=== PATIENT | male | born 1950 | race Two or more races ===

== ENCOUNTER 2023-01-26 10:40 | Inpatient (IN) | payer OTHER ==
[2023-01-26 11:05] VITALS: BMI 26.6
[2023-01-26 12:43] LABS: HEMATOCRIT 45.2 % (35.4-49); HEMOGLOBIN 15.6 GM/dL (11.7-16.9); MCH 31.3 pg (25.7-33.7); MCHC 34.6 g/dl (32.0-35.9); MEAN CELL VOLUME 90.7 fl (80-96); MEAN PLT VOLUME 7.5 fl (7.5-11.1); PLATELET COUNT 228 10^3/uL (134-434); RBC 4.98 M/mm3 (4.00-5.60); RDW 15.4 % (11.9-15.9); WHITE BLOOD COUNT 5.1 K/mm3 (4.0-10.0)
[2023-01-26 12:51] LABS: INR 2.72 (0.83-1.09); PROTHROMBIN TIME (PATIENT) 31.2 SEC (9.7-13.0)
[2023-01-26 13:24] LABS: POTASSIUM 4.1 mmol/L (3.5-5.1)
[2023-01-26 13:28] LABS: CALCIUM 8.7 mg/dL (8.5-10.1)
[2023-01-26 13:29] LABS: ALBUMIN 3.7 g/dl (3.4-5.0); BLOOD UREA NITROGEN 18.2 mg/dL (7-18)
[2023-01-26 13:32] LABS: CREATININE 1.1 mg/dL (0.55-1.3)
[2023-01-26 13:33] LABS: BILIRUBIN,TOTAL 0.5 mg/dL (0.2-1); TOT PROT 6.9 g/dl (6.4-8.2)
[2023-01-26] MEDS ORDERED: HEPARIN NA (PORCINE) 5,000 UNITS/ML 1ML VIAL IVPUSH PRN ×2 (16:56)
[2023-01-26] MEDS: CLOPIDOGREL BISULFATE 75 MG TABLET (FP) PO SCH (17:24)
[2023-01-26] MEDS: ISOSORBIDE MONONITRATE 30 MG TAB.SR.24H (FP) PO SCH (17:24)
[2023-01-26] MEDS: EZETIMIBE 10 MG TABLET (FP) PO SCH (17:51)
[2023-01-26] MEDS ORDERED: HEPARIN INFUSION - 25,000 UNITS/500 ML INFUS.BAG IVPB ONE (17:59)
[2023-01-26] MEDS: HEPARIN INFUSION - 25,000 UNITS/500 ML INFUS.BAG IVPB SCH (18:12)
[2023-01-26] MEDS ORDERED: ACETAMINOPHEN INJECTION 100 ML IVPB ONE (21:05)
[2023-01-26] MEDS: ACETAMINOPHEN 1000 MG/100 ML BAG IVPB PRN (21:14)
[2023-01-26] MEDS ORDERED: CARVEDILOL 12.5 MG TABLET (FP) ONE (22:53)
[2023-01-26] MEDS ORDERED: ATORVASTATIN CA 80 MG TABLET (FP) ONE (22:54)
[2023-01-27] MEDS ORDERED: morphine SULFATE 4 MG/ML VIAL ONE
[2023-01-27] MEDS: DRONEDARONE HCL 400 MG TAB (FP) PO SCH ×3 (00:08→17:44)
[2023-01-27] MEDS: CARVEDILOL 12.5 MG TABLET (FP) PO SCH ×3 (00:08→22:20)
[2023-01-27] MEDS: ATORVASTATIN CA 80 MG TABLET (FP) PO SCH ×2 (00:08→22:19)
[2023-01-27] MEDS: ACETAMINOPHEN 1000 MG/100 ML BAG IVPB PRN (03:18)
[2023-01-27 09:55] LABS: BASO % 0.9 % (0-2.0); EOS % 2.9 % (0-4.5); HEMATOCRIT 44.8 % (35.4-49); HEMOGLOBIN 15.2 GM/dL (11.7-16.9); LYMPH % 40.1 % (8-40); MCH 31.1 pg (25.7-33.7); MEAN CELL VOLUME 91.4 fl (80-96); MEAN PLT VOLUME 7.9 fl (7.5-11.1); MONO % 5.1 % (3.8-10.2); PLATELET COUNT 225 10^3/uL (134-434); RBC 4.91 M/mm3 (4.00-5.60); RDW 15.8 % (11.9-15.9); WHITE BLOOD COUNT 6.1 K/mm3 (4.0-10.0)
[2023-01-27 10:13] LABS: ALBUMIN 3.5 g/dl (3.4-5.0); BLOOD UREA NITROGEN 16.3 mg/dL (7-18); CALCIUM 8.7 mg/dL (8.5-10.1); MAGNESIUM 2.2 mg/dL (1.8-2.4)
[2023-01-27 10:16] LABS: PHOSPHOROUS 3.9 mg/dL (2.5-4.9)
[2023-01-27 10:17] LABS: BILIRUBIN,TOTAL 0.8 mg/dL (0.2-1); TOT PROT 6.7 g/dl (6.4-8.2)
[2023-01-27] MEDS: CLOPIDOGREL BISULFATE 75 MG TABLET (FP) PO SCH (11:49)
[2023-01-27] MEDS: EZETIMIBE 10 MG TABLET (FP) PO SCH (11:49)
[2023-01-27] MEDS: ISOSORBIDE MONONITRATE 30 MG TAB.SR.24H (FP) PO SCH (11:49)
[2023-01-27] MEDS ORDERED: WARFARIN NA 7.5 MG TABLET PO SCH (19:00)
[2023-01-27] MEDS ORDERED: ACETAMINOPHEN 1000 MG/100 ML BAG IVPB ONE (20:14)
[2023-01-27] MEDS: CILOSTAZOL 50 MG TABLET PO SCH (22:19)
[2023-01-28] MEDS: HEPARIN INFUSION - 25,000 UNITS/500 ML INFUS.BAG IVPB SCH (02:04)
[2023-01-28 06:54] VITALS: TEMP 98
[2023-01-28 10:13] VITALS: BP 127/84; PULSE 86; RESP 18
[2023-01-28] MEDS: EZETIMIBE 10 MG TABLET (FP) PO SCH (10:14)
[2023-01-28] MEDS: CARVEDILOL 12.5 MG TABLET (FP) PO SCH (10:14)
[2023-01-28] MEDS: CLOPIDOGREL BISULFATE 75 MG TABLET (FP) PO SCH (10:15)
[2023-01-28] MEDS: ISOSORBIDE MONONITRATE 30 MG TAB.SR.24H (FP) PO SCH (10:15)
[2023-01-28] MEDS: CILOSTAZOL 50 MG TABLET PO SCH (10:15)
[2023-01-28] MEDS: DRONEDARONE HCL 400 MG TAB (FP) PO SCH (10:16)
[2023-01-28 11:05] LABS: BASO % 0.4 % (0-2.0); EOS % 2.7 % (0-4.5); HEMATOCRIT 44.8 % (35.4-49); HEMOGLOBIN 15.7 GM/dL (11.7-16.9); LYMPH % 31.7 % (8-40); MCH 31.5 pg (25.7-33.7); MCHC 35.1 g/dl (32.0-35.9); MEAN CELL VOLUME 89.7 fl (80-96); MEAN PLT VOLUME 7.9 fl (7.5-11.1); MONO % 8.3 % (3.8-10.2); NEUT % 56.9 % (42.8-82.8); PLATELET COUNT 227 10^3/uL (134-434); RDW 15.3 % (11.9-15.9); WHITE BLOOD COUNT 5.5 K/mm3 (4.0-10.0)
[2023-01-28 11:25] LABS: POTASSIUM 4.3 mmol/L (3.5-5.1)
[2023-01-28 11:29] LABS: ALBUMIN 3.6 g/dl (3.4-5.0); CALCIUM 8.8 mg/dL (8.5-10.1)
[2023-01-28 11:30] LABS: BLOOD UREA NITROGEN 13.3 mg/dL (7-18); MAGNESIUM 2.3 mg/dL (1.8-2.4)
[2023-01-28 11:34] LABS: BILIRUBIN,TOTAL 0.7 mg/dL (0.2-1)
== END 2023-01-28 15:15 | disposition home or self-care (01) | DRG 300 ==
LOC: JER 10:40 → JERBED 16:07 → J8W 01-27 01:12
PROVIDERS: ADMIT Internal Medicine; ATTEND Nurse Practitioner Acute Care
DX: I73.9 Peripheral vascular disease, unspecified (principal); D68.62 Lupus anticoagulant syndrome; I10 Essential (primary) hypertension; I48.0 Paroxysmal atrial fibrillation; I25.10 Atherosclerotic heart disease of native coronary artery without angina pectoris; E11.9 Type 2 diabetes mellitus without complications; I25.2 Old myocardial infarction; F17.210 Nicotine dependence, cigarettes, uncomplicated; Z95.1 Presence of aortocoronary bypass graft
CPT/HCPCS: 36415; 71045-TC-FY; 75635-TC; 80053; 83735; 84100; 85025; 85027; 85610; 85730; 86850; 86900; 86901; 93005; 93010; 93971; 99285-25; J1644; Q9967